=== PATIENT | male | born 2000 | race Caucasian/White ===

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

== ENCOUNTER 2020-02-16 14:20 | Emergency (ER) | payer OTHER ==
--- OUTSIDE RECORDS SUMMARY | 2020-02-16 14:22 | XMS REPORT | Continuity of Care Document ---
:2000 Author Organization [facility] t Address [address] [place] [address] Care Team Providers Name Role Phone Serna Attending Clinician Problems This patient has no known problems. Allergies, Adverse Reactions, Alerts This patient has no known allergies or adverse reactions. Medications This patient has no known medications. Procedures This patient has no known procedures. Encounters Start End Encounter Admission Attending Care Care Encounter Source Date/Time Date/Time Type Type Clinicians Facility Department ID 2019-02-17 2019-02-17 Office de [facility] [id number] 11:10:42 11:32:05 Visit [facility] [id number] [id number] [facility] [id number] 225 2019-02-17 2019-02-17 Telephone [facility] [id number] 00:00:00 00:00:00 [facility] [id number] [id number] [facility] [id number] 225 2019-02-17 2019-02-17 Telephone [facility] [id number] 00:00:00 00:00:00 [facility] [id number] [facility] [id number] [facility] [id number] Results This patient has no known results.
--- NOTE | 2020-02-16 15:38 | ER ---
Nurse's Notes [facility] Name: Joel Baker Age: 19 yrs Sex: Male : 2000 Arrival Date: 02/16/2020 Time: 14:25 Bed 17 Private MD: Diagnosis: Chest pain, unspecified;Anxiety disorder, unspecified Presentation: 02/15 14:35 Chief complaint: Patient states: "I think I am having anxiety and it's making my chest aa5 hurt". Pt denies recent illness, denies cough, denies fever, denies fatigue. 14:35 Coronavirus screen: Client denies travel out of the [place] in the last 14 days. At this aa5 time, the client does not indicate any symptoms associated with coronavirus-19. Ebola Screen: Patient negative for fever greater than or equal to 101.5 degrees Fahrenheit, and additional compatible Ebola Virus Disease symptoms. Initial Sepsis Screen: Does the patient meet any 2 criteria? No. Patient's initial sepsis screen is negative. Does the patient have a suspected source of infection? No. Patient's initial sepsis screen is negative. Risk Assessment: Do you want to hurt yourself or someone else? Patient reports no desire to harm self or others. Onset of symptoms was February 13, 2020. 14:35 Acuity: SANDEEP 3 aa5 14:35 Method Of Arrival: Ambulatory aa5 Historical: - Allergies: 14:39 No Known Allergies; aa5 - PMHx: 14:39 None; aa5 - PSHx: 14:39 None; aa5 - Immunization history:: Adult Immunizations up to date. - Social history:: Smoking status: Patient denies any tobacco usage or history of. Screenin:50 Abuse screen: Denies threats or abuse. Denies injuries from another. Nutritional jl7 screening: No deficits noted. Tuberculosis screening: No symptoms or risk factors identified. Assessment: 14:50 General: Appears in no apparent distress. uncomfortable, slender, Behavior is calm, jl7 cooperative. Pain: Complains of pain in anterior aspect of left upper chest Pain does not radiate. Pain currently is 5 out of 10 on a pain scale. Is intermittent. Neuro: Level of Consciousness is awake, alert, obeys commands, Oriented to person, place, time, situation. Cardiovascular: Patient's skin is warm and dry. Respiratory: Airway is patent Respiratory effort is even, unlabored. Derm: Skin is pink, warm \\T\\ dry. 15:19 Reassessment: Mary CANTU at bedside. Vital Signs: 14:39 BP 119 / 75; Pulse 110; Resp 18 S; Temp 98.4(O); Pulse Ox 97% on R/A; Weight 58.97 kg aa5 (R); Height 6 ft. 0 in. (182.88 cm) (R); Pain 5/10; 14:39 Body Mass Index 17.63 (58.97 kg, 182.88 cm) aa5 ED Course: 14:25 Patient arrived in ED. mr 14:38 Arm band placed on. aa5 14:39 Triage completed. aa5 14:41 Dara Bhatia, RN is Primary Nurse. jl7 14:50 Patient has correct armband on for positive identification. Placed in gown. Bed in low jl7 position. Call light in reach. Side rails up X 1. head of science on. Pulse ox on. NIBP on. Warm blanket given. 15:00 EKG done, by ED staff, reviewed by Mary LIM. jl7 15:03 [facility]renshaw [facility]C [facility] kelly 15:03 Markie Ceballos MD is Attending Physician. kb Administered Medications: No medications were administered Outcome: 15:00 AMA AMA form signed jl7 15:39 Patient left the ED. jl7 Signatures: Mary Crenshaw FNP-C FNP-Ellie Cooley RN RN sv Rivera, Mary mr LopezViolette posada, RN VINOD [facility] Dara Bhatia, VINOD BROCK [facility]
--- NOTE | 2020-02-16 15:38 | EDPHYS ---
Physician Documentation [facility] Name: Joel Baker Age: 19 yrs Sex: Male : 2000 Arrival Date: 02/16/2020 Time: 14:25 Bed 17 Private MD: ED Physician Markie Ceballos HPI: 02/15 15:30 This 19 yrs old Male presents to ER via Ambulatory with complaints of Anxiety.kb 15:30 The pain does not radiate. Associated signs and symptoms: Pertinent positives: kb palpitations, Pertinent negatives: abdominal pain, cough, diaphoresis, dizziness, headache, lower extremity pain, lower extremity swelling, lightheadedness, nausea, near syncope, recent travel, shortness of breath, syncope, vomiting. The chest pain is described as dull. Duration: The patient or guardian reports a single episode, that is still ongoing, but improving, started 3 days ago. Modifying factors: The symptoms are alleviated by nothing. the symptoms are aggravated by nothing. Severity of pain: At its worst the pain was moderate in the emergency department the pain has improved. The patient has not experienced similar symptoms in the past. The patient has not recently seen a physician. Pt states "I have been really stressed out and it's making my chest hurt." Pt states he isn't sure if it is just palpitations because it feels like his heart is racing or if he is having pain. States it started 3 days ago, has been constant, but worse in the mornings.. Historical: - Allergies: 14:39 No Known Allergies; aa5 - PMHx: 14:39 None; aa5 - PSHx: 14:39 None; aa5 - Immunization history:: Adult Immunizations up to date. - Social history:: Smoking status: Patient denies any tobacco usage or history of. ROS: 15:29 Constitutional: Negative for fever, chills, and weight loss, Respiratory: Negative for kb shortness of breath, cough, wheezing, and pleuritic chest pain, Abdomen/GI: Negative for abdominal pain, nausea, vomiting, diarrhea, and constipation, Back: Negative for injury and pain, MS/Extremity: Negative for injury and deformity, Skin: Negative for injury, rash, and discoloration, Neuro: Negative for headache, weakness, numbness, tingling, and seizure. 15:29 Cardiovascular: Positive for chest pain, palpitations. Exam: 15:29 Constitutional: This is a well developed, well nourished patient who is awake, alert, kb and in no acute distress. Head/Face: Normocephalic, atraumatic. Chest/axilla: Normal chest wall appearance and motion. Nontender with no deformity. No lesions are appreciated. Cardiovascular: Regular rate and rhythm with a normal S1 and S2. No gallops, murmurs, or rubs. Normal PMI, no JVD. No pulse deficits. Respiratory: Lungs have equal breath sounds bilaterally, clear to auscultation and percussion. No rales, rhonchi or wheezes noted. No increased work of breathing, no retractions or nasal flaring. Abdomen/GI: Soft, non-tender, with normal bowel sounds. No distension or tympany. No guarding or rebound. No evidence of tenderness throughout. Skin: Warm, dry with normal turgor. Normal color with no rashes, no lesions, and no evidence of cellulitis. MS/ Extremity: Pulses equal, no cyanosis. Neurovascular intact. Full, normal range of motion. Neuro: Awake and alert, GCS 15, oriented to person, place, time, and situation. Cranial nerves II-XII grossly intact. Motor strength 5/5 in all extremities. Sensory grossly intact. Cerebellar exam normal. Normal gait. 15:29 ECG was reviewed by the Attending Physician. Vital Signs: 14:39 BP 119 / 75; Pulse 110; Resp 18 S; Temp 98.4(O); Pulse Ox 97% on R/A; Weight 58.97 kg aa5 (R); Height 6 ft. 0 in. (182.88 cm) (R); Pain 5/10; 14:39 Body Mass Index 17.63 (58.97 kg, 182.88 cm) aa5 MDM: 15:04 Patient medically screened. kb 15:29 Data reviewed: vital signs, nurses notes. Data interpreted: Pulse oximetry: on room air kb is 97 %. Interpretation: normal. 15:34 ED course: I offered medication for anxiety, pt would rather not have anything at this kb time and asked how long everything would take. Pt educated that it would be approximately 1-1.5 hours for blood work and the chest x-ray. . 15:37 ED course: Pt decided not to stay for additional testing. States he has just been kb overwhelmed and would like to go home. 15:37 Refusal of service: The patient/guardian displays adequate decision making capability kb and despite a detailed discussion of alternatives, benefits, risks, and consequences refuses: all lab tests, all X-rays. 02/15 15:27 Order name: IV Start kb 02/15 15: Order name: EKG; Complete Time: : kb 02/15 15: Order name: EKG - Nurse/Tech kb EC: Rate is 100 beats/min. Rhythm is regular. Right axis deviation noted. OK interval is kb normal at 130 msec. QRS interval is normal at 92 msec. QT interval is normal at 334 msec. Administered Medications: No medications were administered Disposition: 17:40 Co-signature as Attending Physician, Markie Ceballos MD I agree with the assessment and kdr plan of care. Disposition: 02/16/20 15:38 Patient has left against medical advice. Impression: Chest pain, unspecified, Anxiety disorder, unspecified. - Patients states they are going to Home. - Condition is Stable. Follow up: Emergency Department; When: As needed; Reason: Trouble breathing, Worsening of condition. Follow up: Private Physician; When: 2 - 3 days; Reason: Recheck today's complaints, Continuance of care, Re-evaluation by your physician. - Problem is new. - Symptoms are unchanged. Signatures: Dispatcher [employer] EDMS Mary Crenshaw, SEARCH LEAD-C SEARCH LEAD-Ckb Markie Ceballos MD MD [facility] Violette Russell RN RN aa5 Dara Bhatia RN RN jl7 Corrections: (The following items were deleted from the chart) 15:39 15:38 02/16/2020 15:38 Patients has left against medical advice. Impression: Chest jl7 pain, unspecified; Anxiety disorder, unspecified. Patient states they are going to Home. Condition is Stable. Follow up: Emergency Department; When: As needed; Reason: Trouble breathing, Worsening of condition. Follow up: Private Physician; When: 2 - 3 days; Reason: Recheck today's complaints, Continuance of care, Re-evaluation by your physician. Problem is new. Symptoms are unchanged. kb
--- NOTE | 2020-02-17 05:47 | EKG ---
Test Date: 2020-02-16 Test Time: 15:03:34 Optical Technician: PAOLA MEASUREMENT RESULTS: Intervals: Rate: 100 [place]: 130 QRSD: 92 QT: 334 QTc: 430 [place]: P: 79 [place]: 130 QRS: 113 T: 74 INTERPRETIVE STATEMENTS: Normal sinus rhythm Right axis deviation Incomplete right bundle branch block Right ventricular hypertrophy Nonspecific ST abnormality Abnormal ECG Compared to ECG 04/23/2019 00:18:21 Right-axis deviation now present ST (T wave) deviation now present Electronically Signed On 02-17-20 05:45:15 CDT by Rg Ye
[2020-02-20 13:30] VITALS: BP 119/75; TEMP 98.4; O2SAT 97
== END 2020-02-16 15:39 | disposition left against medical advice (07) ==
LOC: ER 14:20
DX: F41.9 Anxiety disorder, unspecified (principal)
CPT/HCPCS: 93005; 99284